=== PATIENT | female | born 1945 | race Caucasian/White ===

== ENCOUNTER 2019-08-31 14:58 | Outpatient (CLI) | payer MEDICARE, SELFPAY ==
--- NOTE | ~2019-08-31 | MM_ITS ---
EXAMINATION: MM screening ming BI w olya HISTORY: Screening mammogram TECHNIQUE: Craniocaudal and mediolateral oblique 3-D tomosynthesis images were obtained and synthetic 2-D images were generated. CAD analysis was submitted and interpreted. COMPARISON: 08/29/2018, 08/26/2017, 08/25/2016 BREAST PARENCHYMAL COMPOSITION: The breasts are heterogeneously dense, which may obscure small masses . FINDINGS: Scattered benign-appearing calcifications are present. There is no evidence of suspicious m ass, calcification, or architectural distortion to suggest malignancy in either breast. There has bee n no suspicious interval change. IMPRESSION: 1. No mammographic evidence of malignancy. 2. Recommend routine screening mammography in one year. BI-RADS Category 2: Benign finding(s). Reviewed, dictated and finalized at location A. ER PRESS OPERATOR
== END 2019-08-31 14:59 | disposition home or self-care (01) ==
PROVIDERS: PCP Family Medicine Adolescent Medicine; Visit Provider Family Medicine Adolescent Medicine
DX: Z12.31 Encounter for screening mammogram for malignant neoplasm of breast (principal)
CPT/HCPCS: 77063; 77067

== ENCOUNTER → 2020-11-07 10:19 | Outpatient (CLI) | payer MEDICARE, SELFPAY ==
--- NOTE | ~2020-11-07 | MM_ITS ---
EXAMINATION: MM screening ming BI w olya HISTORY: Screening mammogram TECHNIQUE: Craniocaudal and mediolateral oblique 3-D tomosynthesis images were obtained and synthetic 2-D images were generated. CAD analysis was submitted and interpreted. COMPARISON: 08/31/2019, , 08/26/2017 bilateral digital screening mammogram examinations BREAST PARENCHYMAL COMPOSITION: The breasts are heterogeneously dense, which may obscure small masses . FINDINGS: Scattered bilateral benign calcifications. There is no evidence of suspicious mass, calcifi cation, or architectural distortion to suggest malignancy in either breast. There has been no suspici ous interval change. IMPRESSION: 1. No mammographic evidence of malignancy. 2. Recommend routine screening mammography in one year. BI-RADS Category 2: Benign finding(s). Reviewed, dictated and finalized at location A.
--- NOTE | ~2020-11-07 | DEXA_ITS ---
Bone Density Report Name: Rosa James Age: 75 Sex: Female Ethnicity: White Date of : 1945 Indication: postmenopausal; screening for osteoporosis; Referring Provider: GLENN TORO Study: Bone densitometry was performed. Exam Date: November 07, 2020 Accession number: [id number] Bone Density: Region BMD T-score Z-score Classification AP Spine (L1-L4) 0.814 -2.1 0.2 Osteopenia Femoral Neck (Left) 0.719 -1.2 0.9 Osteopenia Total Hip (Left) 0.725 -1.8 0.0 Osteopenia Femoral Neck (Right) 0.636 -1.9 0.1 Osteopenia Total Hip (Right) 0.736 -1.7 0.0 Osteopenia Total Hip Mean 0.731 -1.8 0.0 Osteopenia World Health Organization criteria for BMD impression classify patients as: Normal (T-score at or above -1.0), Osteopenia (T-score between -1.0 and -2.5), or Osteoporosis (T-score at or below -2.5). 10-year Fracture Risk: FRAX not reported because: Treated for osteoporosis Clinical Information Provided by Patient: Is being treated for osteoporosis Has used the following medications: Boniva (i.e. ibandronate), Vitamin D, Calcium Patient maximum height was 65 Menopause Age: 51 Drinks caffeinated beverages Onset of menses at age 13 Number of children 3 Impression: The patient has low bone mass, based on the Total Spine T-score. Discussion: It is important to ask patients whether they are taking their medications and to encourage continued and appropriate compliance with their osteoporosis therapies to reduce fracture risk. It is also important to review their risk factors and encourage appropriate calcium and vitamin D intakes, exercise, fall prevention and other lifestyle measures. Follow-Up: Consider a repeat BMD and Vertebral Fracture Assessment (VFA) exam in 2 years or sooner if medically necessary, to reassess this patient's status. Reported by: QUYNH on 11/07/2020 10:45:00 AM. Reviewed, dictated and finalized at location AMohsen GUPTA
== END ==
PROVIDERS: PCP Family Medicine Adolescent Medicine; Visit Provider Family Medicine Adolescent Medicine
DX: Z78.0 Asymptomatic menopausal state (principal); Z12.31 Encounter for screening mammogram for malignant neoplasm of breast; M85.88 Other specified disorders of bone density and structure, other site; M85.852 Other specified disorders of bone density and structure, left thigh; M85.851 Other specified disorders of bone density and structure, right thigh
CPT/HCPCS: 77063; 77067; 77080

== ENCOUNTER → 2021-11-10 12:16 | Outpatient (CLI) | payer MEDICARE, SELFPAY ==
--- NOTE | ~2021-11-10 | MM_ITS ---
EXAMINATION: MM screening ming BI w olya HISTORY: Screening mammogram TECHNIQUE: Craniocaudal and mediolateral oblique 3-D tomosynthesis images were obtained and synthetic 2-D images were generated. CAD analysis was submitted and interpreted. COMPARISON: 11/07/2020, 08/31/2019, 08/29/2018 bilateral screening mammogram examinations BREAST PARENCHYMAL COMPOSITION: The breasts are heterogeneously dense, which may obscure small masses . FINDINGS: Scattered bilateral benign calcifications. There is no evidence of suspicious mass, calcifi cation, or architectural distortion to suggest malignancy in either breast. There has been no suspici ous interval change. IMPRESSION: 1. No mammographic evidence of malignancy. 2. Recommend routine screening mammography in one year. BI-RADS Category 2: Benign finding(s). Reviewed, dictated and finalized at location A.
== END ==
PROVIDERS: PCP Family Medicine Adolescent Medicine; Visit Provider Family Medicine Adolescent Medicine
DX: Z12.31 Encounter for screening mammogram for malignant neoplasm of breast (principal)
CPT/HCPCS: 77063; 77067

== ENCOUNTER → 2022-11-16 16:24 | Outpatient (CLI) | payer MEDICARE, SELFPAY ==
--- NOTE | ~2022-11-16 | MM_ITS ---
EXAMINATION: MM screening [facility] BI w olya HISTORY: Screening mammogram TECHNIQUE: Craniocaudal and mediolateral oblique 3-D tomosynthesis images were obtained and synthetic 2-D images were generated. CAD analysis was submitted and interpreted. COMPARISON: 11/10/2021, 11/07/2020, 08/31/2019 BREAST PARENCHYMAL COMPOSITION: The breasts are heterogeneously dense, which may obscure small masses . FINDINGS: No suspicious mass, calcification, or architectural distortion are identified in either reynold ast to suggest malignancy. There has been no suspicious interval change. IMPRESSION: 1. No mammographic evidence of malignancy. 2. Recommend routine screening mammography in one year. BI-RADS Category 1: Negative Reviewed, dictated and finalized at location A.
== END ==
PROVIDERS: PCP Family Medicine Adolescent Medicine; Visit Provider Family Medicine Adolescent Medicine
DX: Z12.31 Encounter for screening mammogram for malignant neoplasm of breast (principal)
CPT/HCPCS: 77063; 77067

== ENCOUNTER → 2022-11-18 10:16 | Outpatient (CLI) | payer MEDICARE, SELFPAY ==
--- NOTE | ~2022-11-18 | DEXA_ITS ---
Bone Density Report Name: CLARA SOTO Age: 77 Sex: Female Ethnicity: White Date of : 1945 Indication: osteopenia; monitoring treatment; postmenopausal Referring Provider: GLENN TORO Study: Bone densitometry was performed. Exam Date: November 18, 2022 Accession number: [id number] Bone Density: Region BMD T-score Z-score Classification AP Spine (L1-L4) 0.838 -1.9 0.6 Osteopenia Femoral Neck (Left) 0.701 -1.3 0.8 Osteopenia Total Hip (Left) 0.744 -1.6 0.2 Osteopenia Femoral Neck (Right) 0.647 -1.8 0.3 Osteopenia Total Hip (Right) 0.752 -1.6 0.3 Osteopenia Total Hip Mean 0.748 -1.6 0.3 Osteopenia World Health Organization criteria for BMD impression classify patients as: Normal (T-score at or above -1.0), Osteopenia (T-score between -1.0 and -2.5), or Osteoporosis (T-score at or below -2.5). 10-year Fracture Risk: FRAX not reported because: Treated for osteoporosis Previous Exams: Region Exam Age BMD T-score BMD Change BMD Change Date g/cm2 vs Baseline vs Previous AP Spine(L1-L4) 11/18/2022 77 0.838 -1.9 0.025* 0.025* 11/07/2020 75 0.814 -2.1 Total Hip(Left) 11/18/2022 77 0.744 -1.6 0.018 0.018 11/07/2020 75 0.725 -1.8 Total Hip(Right) 11/18/2022 77 0.752 -1.6 0.016 0.016 11/07/2020 75 0.736 -1.7 *Denotes significance at 95% confidence level, LSC for AP Spine = 0.022 g/cm2, LSC for Total Hip = 0.027 g/cm2 Clinical Information Provided by Patient: Is being treated for osteoporosis Has used the following medications: Boniva (i.e. ibandronate), Vitamin D, Calcium, LEVOTHYROXINE Patient maximum height was 65.5 Menopause Age: 51 Drinks caffeinated beverages Onset of menses at age 13 Number of children 3 Impression: The patient has low bone mass, based on the Total Spine T-score. No significant bone loss was observed. Discussion: PATIENT UNDER TREATMENT WITH NO SIGNIFICANT BMD LOSS SINCE LAST EXAM. In an untreated patient, BMD typically declines with age. A lack of decline or gain is usually a sign that treatment is efficacious and fracture risk is reduced. It is important to ask patients whether they are taking their medications and to encourage continued and appropriate compliance with their osteoporosis therapies to reduce fracture risk. It is also important to review their risk factors and encourage appropriate calcium and vitamin D intakes, exercise, fall
== END ==
PROVIDERS: PCP Family Medicine Adolescent Medicine; Visit Provider Family Medicine Adolescent Medicine
DX: Z78.0 Asymptomatic menopausal state (principal); M85.88 Other specified disorders of bone density and structure, other site; M85.852 Other specified disorders of bone density and structure, left thigh; M85.851 Other specified disorders of bone density and structure, right thigh
CPT/HCPCS: 77080

== ENCOUNTER 2023-12-22 12:27 | Outpatient (CLI) | payer MEDICARE, SELFPAY ==
--- NOTE | ~2023-12-22 | MM_ITS ---
EXAMINATION: MM screening ming BI w olya HISTORY: Screening TECHNIQUE: Craniocaudal and mediolateral oblique 3-D tomosynthesis images were obtained and synthetic 2-D images were generated. CAD analysis was submitted and interpreted. COMPARISON: Comparison to multiple prior studies sequentially, with oldest reviewed study dated 08/26. BREAST PARENCHYMAL COMPOSITION: There are scattered areas of fibroglandular density. FINDINGS: There is no evidence of suspicious mass, calcification, or architectural distortion to sugg est malignancy in either breast. There has been no suspicious interval change. IMPRESSION: 1. No mammographic evidence of malignancy. 2. Recommend routine screening mammography in one year. BI-RADS Category 1: Negative Reviewed, dictated and finalized at location B.
== END 2023-12-22 12:28 ==
LOC: MICIMG 12:27
PROVIDERS: PCP Family Medicine Adolescent Medicine; Visit Provider Family Medicine Adolescent Medicine
DX: Z12.31 Encounter for screening mammogram for malignant neoplasm of breast (principal)
CPT/HCPCS: 77063; 77067

== ENCOUNTER 2024-07-22 15:46 | Observation (INO) | payer MEDICARE, SELFPAY ==
--- NOTE | ~2024-07-22 | MR_ITS ---
EXAMINATION: MR brain/brain stem wo/w con DATE: 07/23/2024 12:12 INDICATION: Abnormal CT TECHNIQUE: Magnetic resonance imaging (MRI) of the brain and brainstem was performed both prior to an d following the administration of intravenous contrast, utilizing standard sequences. 15 mL of MultiHance was utilized COMPARISON: Reference is made to CT examination of the brain dated 07/22/2024 FINDINGS: No restricted diffusion is identified to suggest acute or subacute cerebral infarction. No abnormal signal intensity is identified on gradient echo imaging to suggest acute or subacute hemo rrhage. There are scattered areas of nonspecific increased T2-weighted signal intensity in the cerebral white matter, predominantly involving the deep and periventricular white matter. There are no intraparenchymal signal abnormalities seen on the other pulse sequences. The ventricles are symmetric and normal in size. There are no abnormal extra-axial fluid collections. Flow voids are seen in the cerebral arteries on the T2-weighted sequences consistent with their expec don patency. Visualized orbits and soft tissues are unremarkable. There are no areas of abnormal enhancement on the post contrast images. IMPRESSION: No acute or subacute cerebral infarction. No acute or subacute intracranial hemorrhage. The fred is grossly unremarkable on the MRI examination and is without abnormal signal intensity or c ontrast enhancement. Scattered areas of nonspecific increased T2 weighted signal intensity in the cerebral white matter, n ot uncommon in a patient of this age. Reviewed, dictated and finalized at location A. MODEL MAKER IMPRESSION: No acute or subacute cerebral infarction. No acute or subacute intracranial hemorrhage. The fred is grossly unremarkable on the MRI examination and is without abnormal signal intensity or contrast enhancement. Scattered areas of nonspecific increased T2 weighted signal intensity in the ce rebral white matter, not uncommon in a patient of this age.
--- NOTE | ~2024-07-22 | CT_ITS ---
CT brain wo con Ordering provider: Yeni Montgomery History: 78 years Female with . elevated blood pressure, headache . Comparison: None. Technique: CT of the head without contrast. Radiation reduction technique utilized. The dose-length product was 681 mGy-cm. FINDINGS: BRAIN PARENCHYMA AND CSF SPACES: Slightly prominent pontine area. MRI evaluation advised. Mild leukoa raiosis and diffuse cortical atrophy. Mild atheromatous disease. No midline shift, mass effect or hem orrhage. The brain parenchyma and CSF spaces are otherwise normal. VISUALIZED PARANASAL SINUSES: Well aerated. Marked attenuation of the posterior wall of the left sphenoid sinus is noted. MASTOIDS: Well aerated. BONES: The bones appear intact. SOFT TISSUES: Visualized nasopharynx is normal. Superficial soft tissues are normal. IMPRESSION: No acute intracranial findings. Slightly prominent pontine area. MRI evaluation advised. Reviewed, dictated and finalized at location A. 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
[2024-07-22 15:48] VITALS: BP 194/118; PULSE 98; RESP 18; TEMP 36.8; O2SAT 98
--- NOTE | 2024-07-22 15:56 | ECG_ITS ---
Test Date: 2024-07-22 16:12:07 Measurements Intervals [place] Rate: 91 P: 71 CO: 142 QRS: 16 QRSD: 108 T: 47 QT: 375 QTc: 462 Interpretive Statements SINUS RHYTHM WITH OCCASIONAL VENTRICULAR PREMATURE COMPLEXES POSSIBLE LEFT ATRIAL ENLARGEMENT [-0.1mV P WAVE IN V1/V2] MODERATE ST DEPRESSION [0.05+ mV ST DEPRESSION], CONSIDER INFEROLATERAL ISCHEMIA ABNORMAL ECG Electronically Signed On 07-22-2024 17:43:44 ELECTRIC METER TESTER by Yusuf Rose M.D.
--- NOTE | 2024-07-22 18:59 | ED_ITS ---
HPI - Arrhythmia/Palpitations General Chief Complaint: Arrhythmia/Palpitations <Yeni Montgomery PA-C - Last Filed: 07/23/24 01:35> Stated Complaint: palpatations <Yeni Montgomery PA-C - Last Filed: 07/23/24 01:35> Time Seen by Provider: 07/22/24 18:59 <Yeni Montgomery PA-C - Last Filed: 07/23/24 01:35> Focused HPI: This is a 78 year old female that presents to the ER for elevated blood pressure. Ongoing over the last week. Reports associated headaches. Reports when she was taking her blood pressure this afternoon she saw a warning that she had an irregular heart beat on the machine. She has been taking her blood pressure medications daily. She takes HCTZ and Irbesartan. GENERAL: Elderly, well-nourished, and in no acute distress. HEAD: Normocephalic, atraumatic. CHEST: Clear to auscultation. ?No respiratory distress. HEART: Regular rate and rhythm.? NEURO: ?Alert and oriented x3. Patient screened in triage and initial orders placed.? ?Additional care and disposition to be based upon?diagnostic testing and treatment. <Yeni Montgomery PA-C - Last Filed: 07/23/24 01:35> Related Data Home Medications: Home Medications ?Medication ?Instructions ?Recorded ?Confirmed ?Last Taken ?Type calcium 600 mg (as cap PO DAILY 07/22/21 11/24/23 Unknown History carbonate)-vitamin D3 12.5 mcg (500 unit) capsule (Calcium with Vit D3) aspirin 81 mg tablet,delayed 81 mg PO DAILY 10/01/21 11/24/23 Unknown History release (Adult Low Dose Aspirin) mecobalamin (vitamin B12) 1,000 2,000 mcg PO DAILY 11/24/23 11/24/23 Unknown History mcg lozenges <Yeni Montgomery PA-C - Last Filed: 07/23/24 01:35> Allergies/Adverse Reactions: Allergies Allergy/AdvReac Type Severity Reaction Status Date / Time erythromycin base Allergy Severe EXPOSED TO Verified 11/24/23 13:53 SUN--RASH lisinopril AdvReac Intermediate hyperkalemi Verified 11/24/23 13:53 a doxycycline AdvReac vision Verified 11/24/23 14:26 floaters <Yeni Montgomery PA-C - Last Filed: 07/23/24 01:35> Review of Systems 2 Review of Systems: CONSTITUTIONAL: Denies fever EYES: Denies visual changes CARDIOVASCULAR: Denies chest pain NEUROLOGIC: Reports headache. Denies numbness, or weakness. <Yeni Montgomery PA-C - Last Filed: 07/23/24 01:35> All systems reviewed & are unremarkable except as noted in HPI and below < Yeni Montgomery PA-C - Last Filed: 07/23/24 01:35> PMFSH Past Medical History Medical History: Medical History Normal colonoscopy 2015 Repeat 2025 <REMI Morales Last Filed: 07/23/24 01:35> Surgical History Surgical History: Surgical History History of dilatation and curettage x3 History of surgical removal of ganglion cyst left History of tonsillectomy and adenoidectomy <REMI Morales Last Filed: 07/23/24 01:35> Family History Family History: Family History Sibling Coronary artery disease involving coronary bypass graft <REMI Morales Last Filed: 07/23/24 01:35> Social History Social History: Social History Smoking status: Never smoker Second hand tobacco smoke exposure: No Alcohol intake: current Drinks per week: 1 Substance use: never Substance use type: does not use Living arrangements: alone Occupation/Education: retired Gender identity (if verbalized by the patient): Female Sexual Orientation (if Verbalized by the Patient): Straight or Heterosexual Spiritual care concerns: No Agree to blood products: Yes <REMI Morales Last Filed: 07/23/24 01:35> Exam 2 Narrative: GENERAL: Well-appearing, well-nourished, and in no acute distress. HEAD: Normocephalic, atraumatic. EYES: PERRLA and EOMI. ENT: Nares clear, no rhinorrhea or epistaxis. Mucous membranes moist. Oropharynx without tonsillar hypertrophy exudate or other lesions. Bilateral TMs pearly irving non-bulging NECK: Supple. No adenopathy or masses. CHEST: Clear to auscultation. No respiratory distress. No wheezes rales or rhonchi HEART: Regular rate and rhythm. No murmur heard. Normal peripheral pulses. EXTREMITIES: Normal range of motion. No edema. SKIN: Warm, dry, no rash. NEURO: No focal deficits. Alert and oriented x3. Cranial nerves 2-12 grossly intact PSYCH: Normal mood and affect <Yeni Montgomery PA-C - Last Filed: 07/23/24 01:35> Course Course Emergency Course: patient updated on workup and recommendation for admission <Yeni Montgomery PA-C - Last Filed: 07/23/24 01:35> DINING ROOM TABLES SET UP ATTENDANT/PA Physician Supervision For this patient encounter, I reviewed the DINING ROOM TABLES SET UP ATTENDANT or PA documentation, treatment plan, and medical decision making; and I had [id number] time with this patient. <Kristopher Talamantes MD - Last Filed: 07/23/24 07:04> Consultations Consultation #1: spoke with hospitalist about patient and workup who accepts admission < Yeni Montgomery PA-C - Last Filed: 07/23/24 01:35> Date: 07/23/24 <Yeni Montgomery PA-C - Last Filed: 07/23/24 01:35> Vital Signs Vital signs: Vital Signs Temperature 98.2 F 07/22/24 15:48 Pulse Rate 98 07/22/24 15:48 Respiratory Rate 18 07/22/24 15:48 Blood Pressure 194/118 H 07/22/24 15:48 Pulse Oximetry 98 07/22/24 15:48 Oxygen Delivery Room Air 07/22/24 15:48 Temperature 97.8 F 07/23/24 03:29 Pulse Rate 81 07/23/24 03:29 Respiratory Rate 16 07/23/24 03:29 Blood Pressure 137/75 07/23/24 03:29 Pulse Oximetry 97 07/23/24 03:29 Oxygen Delivery Room Air 07/22/24 15:48 <Yeni Montgomery PA-C - Last Filed: 07/23/24 01:35> Vital Signs Temperature 98.2 F 07/22/24 15:48 Pulse Rate 98 07/22/24 15:48 Respiratory Rate 18 07/22/24 15:48 Blood Pressure 194/118 H 07/22/24 15:48 Pulse Oximetry 98 07/22/24 15:48 Oxygen Delivery Room Air 07/22/24 15:48 Temperature 97.8 F 07/23/24 03:29 Pulse Rate 81 07/23/24 03:29 Respiratory Rate 16 07/23/24 03:29 Blood Pressure 137/75 07/23/24 03:29 Pulse Oximetry 97 07/23/24 03:29 Oxygen Delivery Room Air 07/22/24 15:48 <Kristopher Talamantes MD - Last Filed: 07/23/24 07:04> MDM - Arrhythmia/Palpitations MDM Narrative Medical decision making narrative: Patient presents to the emergency department for elevated blood pressure readings. Known history of hypertension. Reports she has been taking her antihypertensives as prescribed. Reports associated headaches. Blood pressure elevated 194/118 upon arrival. This down trended without intervention. Blood pressure now 140s to 150s systolic. CBC metabolic panel without concerning findings. TSH is low, but free T4 is normal. CT brain without acute intracranial findings. Shows slightly prominent pontine area. Recommend MRI evaluation. patient updated on workup and recommendation for admission. spoke with hospitalist about patient and workup who accepts admission <Yeni Montgomery PA-C - Last Filed: 07/23/24 01:35> Differential Diagnosis Differential diagnosis: Likely palpitations, anxiety, sinus tachycardia, artial fibrillation, ventricular premature beats and other (Hypertension, hypertensive urgency, intracranial hemorrhage, intracranial mass) <Yeni Montgomery PA-C - Last Filed: 07/23/24 01:35> Lab Data Attestation: I reviewed the patient's lab results. <Yeni Montgomery PA-C - Last Filed: 07/23/24 01:35> Result diagrams: 07/22/24 21:54 07/22/24 21:54 <Yeni Montgomery PA-C - Last Filed: 07/23/24 01:35> Labs: Lab Results 07/22/24 Range/Units 21:54 WBC 6.3 (4.5-10.0) K/mm3 RBC 4.29 (4.2-5.4) M/mm3 Hgb 14.5 (12.0-15.0) g/dL Hct 41.1 (37.0-47.0) % MCV 95.8 (80-100) fl MCH 33.8 (26-34) pg MCHC 35.3 (32-36) g/dl RDW 11.6 (11.5-14.5) % Plt Count 314 (150-375) k/mm3 MPV 9.1 (7.4-10.4) fl Immature Gran % (Auto) 0.2 (0-0.5) % Neut % (Auto) 41.4 L (45.5-73.1) % Lymph % (Auto) 34.8 (18.3-44.2) % Shannon % (Auto) 18.0 H (2.6-8.5) % Eos % (Auto) 5.1 H (0-4.4) % Baso % (Auto) 0.5 (0.2-1.2) % Lymph # (Auto) 2.18 (0.9-3.2) K/mm3 Shannon # (Auto) 1.1 H (0.1-0.6) K/mm3 Eos # (Auto) 0.3 (0-0.3) K/mm3 Baso # (Auto) 0.0 (0.0-0.1) K/mm3 Abs Immat Gran (auto) 0.01 (0.00-0.031) K/mm3 Absolute Neuts (auto) 2.6 (1.3-6.7) K/mm3 Absolute Nucleated RBC 0.000 (0.0-0.012) K/mm3 Nucleated RBC % 0.0 (0.0-0.2) % PT 13.5 (11.1-14.7) Seconds INR 1.0 APTT 26.5 (22.3-36.8) Seconds Sodium 138 (137-145) mmol/L Potassium 3.6 (3.4-5.0) mmol/L Chloride 99 (98-107) mmol/L Carbon Dioxide 28 (22-30) mmol/L Anion Gap 11 (4-12) mmol/L BUN 22 H (7-17) mg/dL Creatinine 0.52 L (0.7-1.0) mg/dL Estim Creat Clear Calc 68 ml/min Estimated GFR > 60 (59 - ) Glucose 103 (65-110) mg/dL Calcium 10.2 (8.4-10.2) mg/dL Total Bilirubin 1.2 (0.2-1.3) mg/dL AST 25 (14-36) U/L ALT 28 (6-35) U/L Alkaline Phosphatase 79 (38-126) U/L Total Protein 8.0 (6.3-8.2) g/dL Albumin 5.0 (3.5-5.1) g/dL TSH (Reflex) 0.274 L (0.465-4.68) uIU/mL Free T4 1.90 (0.78-2.19) ng/dL Total T3 1.25 (0.97-1.69) NG/ML <Yeni Montgomery PA-C - Last Filed: 07/23/24 01:35> Lab Results 07/22/24 Range/Units 21:54 WBC 6.3 (4.5-10.0) K/mm3 RBC 4.29 (4.2-5.4) M/mm3 Hgb 14.5 (12.0-15.0) g/dL Hct 41.1 (37.0-47.0) % MCV 95.8 (80-100) fl MCH 33.8 (26-34) pg MCHC 35.3 (32-36) g/dl RDW 11.6 (11.5-14.5) % Plt Count 314 (150-375) k/mm3 MPV 9.1 (7.4-10.4) fl Immature Gran % (Auto) 0.2 (0-0.5) % Neut % (Auto) 41.4 L (45.5-73.1) % Lymph % (Auto) 34.8 (18.3-44.2) % Shannon % (Auto) 18.0 H (2.6-8.5) % Eos % (Auto) 5.1 H (0-4.4) % Baso % (Auto) 0.5 (0.2-1.2) % Lymph # (Auto) 2.18 (0.9-3.2) K/mm3 Shannon # (Auto) 1.1 H (0.1-0.6) K/mm3 Eos # (Auto) 0.3 (0-0.3) K/mm3 Baso # (Auto) 0.0 (0.0-0.1) K/mm3 Abs Immat Gran (auto) 0.01 (0.00-0.031) K/mm3 Absolute Neuts (auto) 2.6 (1.3-6.7) K/mm3 Absolute Nucleated RBC 0.000 (0.0-0.012) K/mm3 Nucleated RBC % 0.0 (0.0-0.2) % PT 13.5 (11.1-14.7) Seconds INR 1.0 APTT 26.5 (22.3-36.8) Seconds Sodium 138 (137-145) mmol/L Potassium 3.6 (3.4-5.0) mmol/L Chloride 99 (98-107) mmol/L Carbon Dioxide 28 (22-30) mmol/L Anion Gap 11 (4-12) mmol/L BUN 22 H (7-17) mg/dL Creatinine 0.52 L (0.7-1.0) mg/dL Estim Creat Clear Calc 68 ml/min Estimated GFR > 60 (59 - ) Glucose 103 (65-110) mg/dL Calcium 10.2 (8.4-10.2) mg/dL Total Bilirubin 1.2 (0.2-1.3) mg/dL AST 25 (14-36) U/L ALT 28 (6-35) U/L Alkaline Phosphatase 79 (38-126) U/L Total Protein 8.0 (6.3-8.2) g/dL Albumin 5.0 (3.5-5.1) g/dL TSH (Reflex) 0.274 L (0.465-4.68) uIU/mL Free T4 1.90 (0.78-2.19) ng/dL Total T3 1.25 (0.97-1.69) NG/ML <Kristopher Talamantes MD - Last Filed: 07/23/24 07:04> Imaging Data Radiologist's impression: ITS Impressions Head CT 07/22/24 20:09 IMPRESSION: No acute intracranial findings. Slightly prominent pontine area. MRI evaluation advised. <Yeni L. Montgomery, PA-C - Last Filed: 07/23/24 01:35> ECG Data EKG #1: ECG completion date: 07/22/24 <REMI Morales Last Filed: 07/23/24 01:35> EKG Interpretation: normal rate, sinus rhythm, PVCs, no ST changes and normal QT <REMI Morales Last Filed: 07/23/24 01:35> Critical Care Time Critical Care Time Critical Care Time: No <REMI Morales Last Filed: 07/23/24 01:35> Discharge Plan Discharge Clinical Impression: Abnormal brain CT Hypertension Qualifiers: Hypertension type: unspecified Qualified Code(s): I10 - Essential (primary) hypertension <REMI Morales Last Filed: 07/23/24 01:35> Patient Disposition: Still a Patient <REMI Morales Last Filed: 07/23/24 01:35> Condition: Improved <REMI Morales Last Filed: 07/23/24 01:35>
[2024-07-22 20:50] VITALS: BP 154/99; PULSE 89; RESP 19; O2SAT 99
[2024-07-22 22:01] LABS: Basophils Percent Auto 0.5 % (0.2-1.2); Eosinophils Absolute Auto 0.3 K/mm3 (0-0.3); Eosinophils Percent Auto 5.1 % (0-4.4); Hematocrit 41.1 % (37.0-47.0); Hemoglobin 14.5 g/dL (12.0-15.0); Immature Granulocyte Absolute 0.01 K/mm3 (0.00-0.031); Immature Granulocyte Percent A 0.2 % (0-0.5); Lymphocytes Absolute Auto 2.18 K/mm3 (0.9-3.2); Lymphocytes Percent Auto 34.8 % (18.3-44.2); Mean Corpuscular HGB Conc 35.3 g/dl (32-36); Mean Corpuscular Hemoglobin 33.8 pg (26-34); Mean Corpuscular Volume 95.8 fl (80-100); Mean Platelet Volume 9.1 fl (7.4-10.4); Monocytes Absolute Auto 1.1 K/mm3 (0.1-0.6); Neutrophils Absolute Auto 2.6 K/mm3 (1.3-6.7); Neutrophils Percent Auto 41.4 % (45.5-73.1); Platelet Count Result 314 k/mm3 (150-375); Red Blood Count 4.29 M/mm3 (4.2-5.4); Red Cell Distribution Width 11.6 % (11.5-14.5); White Blood Count 6.3 K/mm3 (4.5-10.0)
[2024-07-22 22:11] LABS: Alanine Aminotransferase 28 U/L (6-35); Alkaline Phosphatase 79 U/L (38-126); Anion Gap 11 mmol/L (4-12); Aspartate Amino Transferase 25 U/L (14-36); Bilirubin,Total 1.2 mg/dL (0.2-1.3); Blood Urea Nitrogen 22 mg/dL (7-17); Calcium 10.2 mg/dL (8.4-10.2); Carbon Dioxide 28 mmol/L (22-30); Chloride 99 mmol/L (98-107); Estimated CRCL calculation 68 ml/min; Estimated Glomerular Filt Rate > 60; Glucose 103 mg/dL (65-110); Potassium 3.6 mmol/L (3.4-5.0); Prothrombin Time 13.5 Seconds (11.1-14.7); Sodium 138 mmol/L (137-145)
[2024-07-22 22:12] LABS: Partial Thromboplastin Time 26.5 Seconds (22.3-36.8)
[2024-07-22 22:43] LABS: Thyroid Stimulating Hormone Reflex 0.274 uIU/mL (0.465-4.68)
[2024-07-23] VITALS (25 sets, daily range): BP systolic 108–162; BP diastolic 60–89; PULSE 67–100; RESP 13–22; TEMP 36.4–37.4; O2SAT 95–100; BMI 25.7
[2024-07-23 01:14] LABS: Total Triiodothyronine (T3) 1.25 NG/ML (0.97-1.69)
--- NOTE | 2024-07-23 17:14 | PM.IMHP ---
H&P: HPI History of Present Illness Date/Time: 07/23/24 17:14 Chief Complaint: Elevated Blood Pressure Narrative: Patient presented to the ER with reports of elevated BP at home, associated with headache. She reports headache started 2 days ago and resolved but returned again today. She reports checking her BP multiple times before her presentation and it was trending higher every time she checked. Her BP machine also reported to her irregular heart beat, prompting patient to come to the ER for evaluation. She denies any associating dizziness or SOB, and denies chest discomfort or one sided weakness, facial droop or any trouble swallowing. States she feels like her normal except for the headache. Review of Systems Review of Systems: All systems reviewed & are unremarkable except as noted in HPI and below PMFSH Past Medical History Medical History Normal colonoscopy 2016 Repeat 2025 Surgical History Surgical History History of surgical removal of ganglion cyst left History of dilatation and curettage x3 History of tonsillectomy and adenoidectomy Family History Family History Sibling Coronary artery disease involving coronary bypass graft Social History Social History Smoking status: Never smoker Second hand tobacco smoke exposure: No Alcohol intake: never Drinks per week: 1 Substance use: never Substance use type: does not use Do You Feel Safe in your Home?: Yes Lack of Transportation: No Lack of Food: Never True Current Housing: I Have Housing Concerned About Future Housing: No Difficulty Paying Gas/Electric Bills: No Difficulty Paying for Meds: No Currently Unemployed: No Education: Master's Degree or Higher Difficulty w/ Childcare or Family Care: No Living arrangements: alone Occupation/Education: retired Gender identity (if verbalized by the patient): Female Sexual Orientation (if Verbalized by the Patient): Straight or Heterosexual Spiritual care concerns: No Agree to blood products: Yes Meds Home Medications and Allergies Home Medications ?Medication ?Instructions ?Recorded ?Confirmed ?Type calcium 600 mg (as 1 cap PO BID 07/22/21 07/23/24 History carbonate)-vitamin D3 12.5 mcg (500 unit) capsule (Calcium with Vit D3) aspirin 81 mg tablet,delayed 81 mg PO DAILY 10/01/21 07/23/24 History release (Adult Low Dose Aspirin) irbesartan 300 mg tablet 300 mg PO DAILY #90 tabs 07/22/23 07/23/24 Rx levothyroxine 125 mcg tablet 125 mcg PO DAILY #90 tabs 07/22/23 07/23/24 Rx mecobalamin (vitamin B12) 1,000 2,000 mcg PO DAILY 11/24/23 07/23/24 History mcg lozenges montelukast 10 mg tablet 10 mg PO QHS #90 tabs 11/24/23 07/23/24 Rx hydrochlorothiazide 25 mg tablet 25 mg PO DAILY #90 tabs 07/22/24 07/23/24 Rx ibandronate 150 mg tablet 150 mg PO MONTHLY #3 tabs 07/22/24 07/23/24 Rx Allergies Allergy/AdvReac Type Severity Reaction Status Date / Time erythromycin base Allergy Severe EXPOSED TO Verified 11/24/23 13:53 SUN--RASH lisinopril AdvReac Intermediate hyperkalemi Verified 11/24/23 13:53 a doxycycline AdvReac vision Verified 11/24/23 14:26 floaters Vital Signs Vital Signs - 24 hr 07/22/24 20:50 07/23/24 00:31 07/23/24 02:01 Temperature Pulse Rate 89 94 95 Respiratory Rate 19 19 22 H Blood Pressure 154/99 H 162/83 H 159/84 H Pulse Oximetry 99 98 100 07/23/24 03:16 07/23/24 03:29 07/23/24 03:29 Temperature 97.8 F Pulse Rate 81 82 81 Respiratory Rate 22 H 16 Blood Pressure 137/75 137/75 Pulse Oximetry 97 97 07/23/24 03:31 07/23/24 03:46 07/23/24 04:01 Temperature Pulse Rate 81 100 78 Respiratory Rate 20 20 19 Blood Pressure 127/79 133/80 144/88 H Pulse Oximetry 98 98 98 07/23/24 04:16 07/23/24 04:31 07/23/24 04:46 Temperature Pulse Rate 77 79 77 Respiratory Rate 13 22 H 21 H Blood Pressure 122/74 129/60 111/70 Pulse Oximetry 99 98 99 07/23/24 05:01 07/23/24 05:16 07/23/24 05:31 Temperature Pulse Rate 72 69 81 Respiratory Rate 17 19 20 Blood Pressure 111/69 108/66 136/67 Pulse Oximetry 98 98 100 07/23/24 05:35 07/23/24 06:46 07/23/24 07:02 Temperature 98.7 F Pulse Rate 75 67 78 Respiratory Rate 20 19 20 Blood Pressure 128/69 111/62 128/69 Pulse Oximetry 96 97 97 07/23/24 07:16 07/23/24 07:38 07/23/24 11:19 Temperature 97.6 F Pulse Rate 77 87 88 Respiratory Rate 16 17 14 Blood Pressure 125/72 139/75 125/76 Pulse Oximetry 100 95 96 07/23/24 14:23 07/23/24 15:03 07/23/24 15:52 Temperature 97.6 F Pulse Rate 98 90 79 Respiratory Rate 16 16 14 Blood Pressure 139/81 130/88 155/89 H Pulse Oximetry 97 98 100 Exam Narrative: HEENT: Atraumatic, PERRL, EOM, anicteric, moist mucosa. NECK: Supple. Lungs: Clear bilaterally. Heart: RRR, no murmurs. Abdomen: Soft, non-tender, non-distended, +ve BS X4 Quadrants. Extremities: Acyanotic, no edema. Skin: Warm and dry with no lesions. Neuro: Well oriented. CN II-XII grossly intact. Musculoskeletal: Strength 5/5 on all extremities, good ROM christiano. Psych: Pleasant and co-operative. H&P: Results Labs Labs: Short CBC 07/22/24 Range/Units 21:54 WBC 6.3 (4.5-10.0) K/mm3 Hgb 14.5 (12.0-15.0) g/dL Hct 41.1 (37.0-47.0) % Plt Count 314 (150-375) k/mm3 BMP 07/22/24 21:54 Sodium 138 Potassium 3.6 Chloride 99 Carbon Dioxide 28 BUN 22 H Creatinine 0.52 L Glucose 103 Calcium 10.2 Liver Function 07/22/24 Range/Units 21:54 Total Bilirubin 1.2 (0.2-1.3) mg/dL AST 25 (14-36) U/L ALT 28 (6-35) U/L Alkaline Phosphatase 79 (38-126) U/L Albumin 5.0 (3.5-5.1) g/dL Assessment and Plan Assessment and plan (1) Abnormal brain CT: Code(s): R90.89 - Other abnormal findings on diagnostic imaging of central nervous system Status: Acute Assessment and Plan: CT Brain: No acute intracranial findings. Slightly prominent pontine area. MRI evaluation advised. - MRI brain ordered. - Pt with headache since yesterday. - Follow MRI brain results. - No focal neuro deficits noted. (2) Cephalgia: Code(s): R51.9 - Headache, unspecified Status: Acute Assessment and Plan: - Possibly related to above. - We'll give Ibuprofen for now per pt preference. - Follow MRI brain results. - Supportive care for now. (3) Essential (primary) hypertension: Code(s): I10 - Essential (primary) hypertension Status: Acute Assessment and Plan: - BP currently trending normal highs; SBP 130's-150's. - Hold BP meds for now pending MRI brain for possible acute CVA. - Monitor closely. (4) Pure hypercholesterolemia, unspecified: Code(s): E78.00 - Pure hypercholesterolemia, unspecified Status: Acute Assessment and Plan: - Check lipid panel and A1C. - We'll consider statin pending MRI brain and Lipid panel results. (5) Hypothyroidism, unspecified: Code(s): E03.9 - Hypothyroidism, unspecified Status: Acute Assessment and Plan: - Check TSH/FT4. - Continue home dose levothyroxine for now. (6) Vitamin B12 deficiency: Code(s): E53.8 - Deficiency of other specified B group vitamins Status: Acute Assessment and Plan: - Continue PO supplementation. (7) Age-related osteoporosis without current pathological fracture: Code(s): M81.0 - Age-related osteoporosis without current pathological fracture Status: Acute Assessment and Plan: - Continue calcium and Vit-D supplementation. Plan Further w/u pending MRI Brain results. Quality VTE Prophylaxis VTE prophylaxis: mechanical ordered Hospitalist MIPS Advance Care Plan I have confirmed that the patient's Advanced Care Plan is present, code status is documented, or surrogate decision maker is listed in patient medical record.: Yes Medication Reconciliation I have utilized all available resources to obtain, update and review the patients current medications (includes all prescriptions, OTC, herbals, cannabis, and nutritional supplements).: Yes
--- NOTE | 2024-07-23 17:16 | ADMGEN ---
This patient, Rosa James, was admitted to 3 [facility] Surg Room 306-01. Patient/family oriented to hospital policies and general routines including ID bracelet, bed and alarms, visiting hours, pain management, procedures, bathroom and other care routines, personal items, smoking policy, room service/diet, and visiting hours. Information on how to activate the Rapid Response Team has been discussed. Patient/Family are encouraged to report perceived risks to care and to ask questions if they do not understand what they are told or what they should do. Report from Kassandra in ER.
[2024-07-23] MEDS: IBUPROFEN 400 MG TABLET PO (17:44)
[2024-07-23] MEDS: ASPIRIN 325 MG TABLET PO (17:45)
[2024-07-23] MEDS: CALCIUM/VITAMIN D 500 MG/5 MCG (200 I.U.) TABLET PO (17:45)
[2024-07-23 19:36] LABS: Hemoglobin A1C 5.7 % (<5.7)
[2024-07-23 19:40] LABS: Cholesterol 218 mg/dL (0-200); HDL Direct 83 mg/dL; Triglycerides 53 mg/dL (<150)
[2024-07-23 19:51] LABS: LDL Cholesterol Direct 98 mg/dL
[2024-07-24] VITALS (7 sets, daily range): BP systolic 119–141; BP diastolic 65–72; PULSE 61–86; RESP 18; TEMP 36.3–37.6; O2SAT 96–98
[2024-07-24] MEDS: LEVOTHYROXINE SODIUM 125 MCG TABLET PO (05:59)
[2024-07-24] MEDS: CYANOCOBALAMIN 1,000 MCG TABLET 2000 MCG PO (08:28)
[2024-07-24] MEDS: ASPIRIN 81 MG ENTERIC TABLET PO (08:29)
[2024-07-24] MEDS: CALCIUM/VITAMIN D 500 MG/5 MCG (200 I.U.) TABLET PO (09:48)
--- NOTE | 2024-07-24 12:38 | P.DS_ITS ---
DS: Admitting Diagnosis Discharge Date 07/24/24 Admitting Diagnosis Elevated BP DS: Discharge Diagnosis Discharge Diagnosis (1) Abnormal brain CT: Code(s): R90.89 - Other abnormal findings on diagnostic imaging of central nervous system Status: Acute Assessment and Plan: Acute (2) Cephalgia: Code(s): R51.9 - Headache, unspecified Status: Acute Assessment and Plan: - Acute. (3) Essential (primary) hypertension: Code(s): I10 - Essential (primary) hypertension Status: Acute Assessment and Plan: - Chronic. (4) Pure hypercholesterolemia, unspecified: Code(s): E78.00 - Pure hypercholesterolemia, unspecified Status: Acute Assessment and Plan: - Chronic. (5) Hypothyroidism, unspecified: Code(s): E03.9 - Hypothyroidism, unspecified Status: Acute Assessment and Plan: -Chronic. (6) Vitamin B12 deficiency: Code(s): E53.8 - Deficiency of other specified B group vitamins Status: Acute Assessment and Plan: - Chronic. (7) Age-related osteoporosis without current pathological fracture: Code(s): M81.0 - Age-related osteoporosis without current pathological fracture Status: Acute Assessment and Plan: - Chronic. Plan Discharge Home. DS: Summary Hospital Course Reason for hospitalization: Elevated BP. Hospital Course: Patient presented to the ER with reports of elevated BP at home within the last 2 days, associated with headache. Patient states that her BP machine read high BP and irregular rhythm. With the symptoms not improving and associated with non-improving headache, she decided to come to the ER for evaluation. Patient's SBP was >190 on admission, with CT head showing; No acute intracranial findings. Slightly prominent pontine area. MRI evaluation advised. Patient had MRI brain done that was negative for acute, and showed; The fred is grossly unremarkable on the MRI examination and is without abnormal signal intensity or contrast enhancement. Scattered areas of nonspecific increased T2 weighted signal intensity in the cerebral white matter, not uncommon in a patient of this age. Patient reports her headache has resolved this AM and she does not have any acute symptoms, and no neuro deficits. Her BP has been fairly well controlled off medications and she will be discharged on home medications and follow-up with her PCP for adjustments if needed. Her A1C was 5.7 and she was advised on diabetic diet, LDL noted at 98 as well. Patient has been advised to follow-up with PCP for continued mgt of her chronic conditions. Patient with no neuro deficits and is medically stable for discharge with no acute distress noted or reported prior to discharge. Status at Discharge Functional status at discharge: independent ambulation Overall status at discharge: patient is back to baseline Time Spent with Patient Time spent: Greater than 30 minutes Exam Narrative: General: Well appearing, no acute distress. HEENT: Atraumatic, PERRL, EOM, anicteric, moist mucosa. NECK: Supple. Lungs: Clear bilaterally. Heart: RRR, no murmurs. Abdomen: Soft, non-tender, non-distended, +ve BS X4 Quadrants. Extremities: Acyanotic, no edema. Skin: Warm and dry with no lesions. Neuro: Well oriented. CN II-XII grossly intact. Musculoskeletal: Strength 5/5 on all extremities, good ROM christiano. Psych: Pleasant and co-operative. DS: Data Data Completed and Pending Labs on day of discharge: Labs from last 24 hours 07/23/24 19:23 Hemoglobin A1c 5.7 Triglycerides 53 Cholesterol 218 H LDL Cholesterol Direct 98 HDL Direct 83 Discharge Plan Discharge Attending physician on discharge: Hieu Yates Discharging Clinician: Marlon Dias Anticipated Discharge Date/Time: 07/24/24 12:54 Patient Disposition: Home, Self-Care Activity: as tolerated Diet: heart healthy Patient Instructions: Antibiotic Form Patient Language: South Sudanese Stand Alone Forms: General Discharge Information Follow-up/Referrals: Td Mark MD [Primary Care Provider] - 1 Week Discharge Medications: Continued aspirin [Adult Low Dose Aspirin] 81 mg tablet,delayed release (DR/EC) 81 mg PO DAILY irbesartan 300 mg tablet 300 mg PO DAILY Qty: 90 3RF levothyroxine 125 mcg tablet 125 mcg PO DAILY Qty: 90 3RF montelukast 10 mg tablet 10 mg PO QHS Qty: 90 0RF mecobalamin (vitamin B12) 1,000 mcg lozenge 2,000 mcg PO DAILY Rx Instructions: allow to dissolve in mouth OR may chew lightly before swallowing calcium carbonate-vitamin D3 [Calcium 600 with Vitamin D3] 600 mg-12.5 mcg (500 unit) capsule 1 cap PO BID ibandronate 150 mg tablet 150 mg PO MONTHLY Qty: 3 3RF Patient Comments: takes the first of every month hydrochlorothiazide 25 mg tablet 25 mg PO DAILY Qty: 90 0RF Date of admission: 07/23/24 01:24 Primary Care Provider: Td Mark Admitting Provider: Brian Benavides V. Attending physician on admission: Brian Benavides V. Condition: Improved Quality If No VTE Prophylaxis Answer both mechanical and pharmacologic: Reason no mechanical VTE proph: low risk/not indicated Reason no pharmacologic proph: low risk/not indicated Hospitalist MIPS Heart Failure (Exclusion) Patient has history of Heart Transplant or Left Ventricular Assistive Device?: No IF YES, STOP HERE Heart Failure (Qualifier) Patient has current or prior documentation of LVEF less than or equal to 40%, or mod/servere depressed LVSF?: No IF NO, STOP HERE
== END 2024-07-24 13:20 | disposition home or self-care (01) ==
LOC: ANHED 07-23 01:30 → ANH3MEDSUR 07-24 06:19
PROVIDERS: Nurse Practitioner Adult Health; Admitting Provider Internal Medicine; Emergency Provider Physician Assistant; PCP Family Medicine Adolescent Medicine; Visit Provider Hospitalist
DX: R51.9 Headache, unspecified (principal); I10 Essential (primary) hypertension; R90.89 Other abnormal findings on diagnostic imaging of central nervous system; E78.00 Pure hypercholesterolemia, unspecified; E03.9 Hypothyroidism, unspecified; E53.8 Deficiency of other specified B group vitamins; M81.0 Age-related osteoporosis without current pathological fracture; Z79.82 Long term (current) use of aspirin; Z79.899 Other long term (current) drug therapy
CPT/HCPCS: 36415; 70450; 70553; 80053; 80061; 83036; 84439; 84443; 84480; 85025; 85610; 85730; 93005; 99285; A9270; A9577; G0378

== ENCOUNTER 2024-11-22 15:02 | Outpatient (CLI) | payer MEDICARE, SELFPAY ==
--- NOTE | ~2024-11-22 | XR_ITS ---
XR hip BI 2V w AP pelvis 11/22/2024 15:29 Indication: Right hip pain Procedure: AP pelvis and 2 views each hip Comparison: No prior studies for comparison. Findings: There is moderate bilateral osteoarthritis of the hips. Pelvic rings are intact. There is l ower lumbar spondylosis. Sacral foramen are symmetric. No acute fracture, subluxation or dislocation. No focal soft tissue abnormality. No foreign bodies. Impression: 1: Moderate symmetric osteoarthritis of the hips. Reviewed, dictated and finalized at location A. Impression: 1: Moderate symmetric osteoarthritis of the hips.
== END 2024-11-22 15:03 | disposition home or self-care (01) ==
LOC: MICIMG 15:03
PROVIDERS: PCP Family Medicine; Visit Provider Family Medicine
DX: M16.0 Bilateral primary osteoarthritis of hip (principal)
CPT/HCPCS: 73521

== ENCOUNTER 2025-01-16 12:36 | Outpatient (CLI) | payer MEDICARE, SELFPAY ==
--- NOTE | ~2025-01-16 | DEXA_ITS ---
Bone Density Report Name: CLARA SOTO Age: 79 Sex: Female Ethnicity: White Date of : 1945 Indication: osteopenia; Referring Provider: GLENN TORO Study: Bone densitometry was performed. Exam Date: January 16, 2025 Accession number: [id number] Bone Density: Region BMD T-score Z-score Classification AP Spine(L1-L4) 0.788 -2.4 0.2 Osteopenia Femoral Neck (Left) 0.684 -1.5 0.7 Osteopenia Total Hip (Left) 0.743 -1.6 0.3 Osteopenia Femoral Neck (Right) 0.660 -1.7 0.5 Osteopenia Total Hip (Right) 0.752 -1.6 0.4 Osteopenia Total Hip Mean 0.747 -1.6 0.4 Osteopenia World Health Organization criteria for BMD impression classify patients as: Normal (T-score at or above -1.0), Osteopenia (T-score between -1.0 and -2.5), or Osteoporosis (T-score at or below -2.5). 10-year Fracture Risk(1): Major Osteoporotic Fracture 14% Hip Fracture 3.5% Reported Risk Factors: [place] (), Neck BMD=0.660, BMI=25.9 (1) FRAX(R) Version 3.08. Fracture probability calculated for an untreated patient. Fracture probability may be lower if the patient has received treatment. Previous Exams: -- Region Exam Age BMD T-score BMD Change BMD Change Date g/cm2 vs Baseline vs Previous -- AP Spine (L1-L4) 01/16/2025 79 0.788 -2.4 3.7%* -6.0%* 11/18/2022 77 0.838 -1.9 10.4%* 3.0%* 11/07/2020 75 0.814 -2.1 7.1%* 7.1%* 08/22/2014 68 0.760 -2.6 Total Hip(Left) 01/16/2025 79 0.743 -1.6 7.3%* -0.1% 11/18/2022 77 0.744 -1.6 7.4%* 2.6% 11/07/2020 75 0.725 -1.8 4.8%* 4.8%* 08/22/2014 68 0.692 -2.0 Total Hip(Right) 01/16/2025 79 0.752 -1.6 7.5%* 0.0% 11/18/2022 77 0.752 -1.6 7.6%* 2.2% 11/07/2020 75 0.736 -1.7 5.2%* 5.2%* 08/22/2014 68 0.699 -2.0 -- *Denotes significance at 95% confidence level, LSC for AP Spine = 0.022 g/cm2, LSC for Total Hip = 0.027 g/cm2 Clinical Information Provided by Patient: Has used the following medications: Actonel (i.e. risedronate), Boniva (i.e. ibandronate), Vitamin D, Calcium Patient maximum height was 65 Menopause Age: 51 Drinks caffeinated beverages Onset of menses at age 13 Number of children 3 Impression: The patient has low bone mass, based on the Total Spine T-score. The patient has an estimated ten-year risk of hip fracture of 3.5% and an estimated ten-year risk of major fracture of 14%, based on the WHO FRAX algorithm. The BMD for the AP Spine (L1-L4) decreased, changing by -6.0% since the last DXA exam. Discussion: BONE DENSITY IS LOW AT ONE OR MORE SKELETAL SITES. THE PATIENT'S BMD AND CLINICAL RISK FACTORS CONTRIBUTE TO THIS PATIENT'S INCREASED RISK OF FRACTURE. This patient's lowest T-score is low at one or more skeletal sites. It meets the World Health Organization's (WHO) criteria for ?low bone mass? (T-score between -1.0 and -2.5). The patient's 10-year risk of hip fracture as calculated by FRAX exceeds the threshold where pharmacological therapy is recommended by the National Osteoporosis Foundation (NOF). However, all treatment decisions require clinical judgment and consideration of individual patient factors, including patient preferences, comorbidities, previous drug use, risk factors not captured in the FRAX model (e.g., frailty, falls, vitamin D deficiency, increased bone turnover, interval significant decline in bone density) and possible under or overestimation of fracture risk by FRAX. The patient should follow a healthful lifestyle (good nutrition with adequate calcium and vitamin D, and appropriate weight-bearing exercise). Follow-Up: Consider a repeat BMD and Vertebral Fracture Assessment (VFA) exam in 2 years or sooner if medically necessary, to reassess this patient's status. Reported by: LUCIE on 01/16/2025 12:57:00 PM. Reviewed, dictated and finalized at location A.
== END 2025-01-16 12:37 | disposition home or self-care (01) ==
LOC: MICIMG 12:37
PROVIDERS: PCP Family Medicine; Visit Provider Family Medicine Adolescent Medicine
DX: Z78.0 Asymptomatic menopausal state (principal); M85.88 Other specified disorders of bone density and structure, other site; M85.852 Other specified disorders of bone density and structure, left thigh; M85.851 Other specified disorders of bone density and structure, right thigh
CPT/HCPCS: 77080

== ENCOUNTER 2025-03-06 14:14 | Outpatient (CLI) | payer MEDICARE, SELFPAY ==
--- NOTE | ~2025-03-06 | MM_ITS ---
EXAMINATION: MM screening [facility] BI w olya HISTORY: Screening TECHNIQUE: Craniocaudal and mediolateral oblique 3-D tomosynthesis images were obtained and synthetic 2-D images were generated. CAD analysis was submitted and interpreted. COMPARISON: Comparison to multiple prior studies sequentially, with oldest reviewed study dated 08/29/2018. BREAST PARENCHYMAL COMPOSITION: There are scattered areas of fibroglandular density. FINDINGS: There is no evidence of suspicious mass, calcification, or architectural distortion to suggest malignancy in either breast. Scattered benign-appearing calcifications are present. IMPRESSION: 1. No mammographic evidence of malignancy. 2. Recommend routine screening mammography in one year. BI-RADS Category 2: Benign finding(s). Reviewed, dictated and finalized at location B.
--- OUTSIDE RECORDS SUMMARY | 2025-03-06 14:17 | XMS_ITS | Clinical Summary ---
Author Organization [facility] Address [address] [place] [address] Care Team Providers Care Pier Master Name Role Phone Td Mark MD Primary Care Provider + Source Comments Informous [facility],non-owned Affiliates and Associated Physician Practices is amultiple site organization consisting of ambulatory clinics and hospital sitesin [place], [place], [place] and [place]. This disclosure is being madepursuant to the Care Everywhere program and may not contain all information available regarding this patient. Last updated 18.Spokeable Allergies No known active allergies Medications * Be aware that medications may not be up to date on this document. Alwaysverify current medications with the patient. 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 Gender Identity Not on file Sexual Orientation Not on file Last Filed Vital Signs Vital Sign Reading Time Taken Comments Blood Pressure 164/90 07/02/2018 2:29 PM CONCRETE STONE FABRICATOR Pulse 98 07/02/2018 2:29 PM CONCRETE STONE FABRICATOR Temperature 37.1 C (98.8 F) 07/02/2018 2:29 PM CONCRETE STONE FABRICATOR Respiratory Rate 19 07/02/2018 2:29 PM CONCRETE STONE FABRICATOR Oxygen Saturation 97% 07/02/2018 2:29 PM CONCRETE STONE FABRICATOR Inhaled Oxygen Concentration - - Weight 68.9 kg (152 lb) 07/02/2018 2:29 PM CONCRETE STONE FABRICATOR Height 166.4 cm (5' 5.5) 07/02/2018 2:29 PM CONCRETE STONE FABRICATOR Body Mass Index 24.91 07/02/2018 2:29 PM CONCRETE STONE FABRICATOR Plan of Treatment Health Maintenance Due Date Last Done Comments BONE DENSITY TESTING 1945 HEPATITIS C SCREENING 08/22/1964 DTAP/TDAP/TD VACCINES (1 - Tdap) 1965 PNEUMOCOCCAL VACCINE 50+ (1 of 1 - PCV) 1996 ZOSTER VACCINE (1 of 2) 1996 Respiratory Syncytial Virus (RSV) Vaccine Pt: or over 60 yrs (1 - 1-dose 75+ series) 2021 COVID-19 VACCINE (1 - 2023-2 5 season) 2024 DEPRESSION SCREENING 07/12/2024 INFLUENZA VACCINE (#1) 2025 HEPATITIS B VACCINE Aged Out No longe r eligible based on patient's age to complete this topic HIB VACCINE Aged Out No longer eligi ble based on patient's age to complete this topic HPV VACCINE Aged Out No longer eligi ble based on patient's age to complete this topic MENINGOCOCCAL (Group B) VACC INE SHARED DECISION-MAKING Aged Out No longer eligibl e based on patient's age to complete this topic MENINGOCOCCAL GROUPS A/C/Y/W VACCINE Aged Out No longer eligible b ased on patient's age to complete this topic Insurance [facility] MANAGED MEDICARE ADV Care Teams Pier Master Relationship Specialty Start Date End Date Td Mark MD [address] [address] PCP - General Family Medicine 07/02/18
== END 2025-03-06 14:15 | disposition home or self-care (01) ==
LOC: ANHFOHIMG 14:15
PROVIDERS: PCP Family Medicine; Visit Provider Family Medicine Adolescent Medicine
DX: Z12.31 Encounter for screening mammogram for malignant neoplasm of breast (principal)
CPT/HCPCS: 77063; 77067

== ENCOUNTER 2025-07-09 10:31 | Outpatient (CLI) | payer MEDICARE, SELFPAY ==
--- OUTSIDE RECORDS SUMMARY | 2025-07-09 11:07 | XMS_ITS | Clinical Summary ---
Author Organization [facility] Address [address] [place] [address] Care Team Providers Care Maintenance Truck Driver Name Role Phone Td Mark MD Primary Care Provider + Source Comments [employer] [facility],non-owned Affiliates and Associated Physician Practices is amultiple site organization consisting of ambulatory clinics and hospital sitesin [place], [place], [place] and [place]. This disclosure is being madepursuant to the Care Everywhere program and may not contain all information available regarding this patient. Last updated 18.[employer]ane Allergies No known active allergies Medications * [...] on file Legal Sex Female 2:09 PM POND TENDER Gender Identity Not on file Sexual Orientation Not on file Last Filed Vital Signs Vital Sign Reading Time Taken Comments Blood Pressure 164/90 07/02/2018 2:29 PM POND TENDER Pulse 98 07/02/2018 2:29 PM POND TENDER Temperature 37.1 C (98.8 F) 07/02/2018 2:29 PM POND TENDER Respiratory Rate 19 07/02/2018 2:29 PM POND TENDER Oxygen Saturation 97% 07/02/2018 2:29 PM POND TENDER Inhaled Oxygen Concentration - - Weight 68.9 kg (152 lb) 07/02/2018 2:29 PM POND TENDER Height 166.4 cm (5' 5.5) 07/02/2018 2:29 PM POND TENDER Body Mass Index 24.91 07/02/2018 2:29 PM POND TENDER Plan of Treatment Health Maintenance Due Date Last Done Comments BONE DENSITY TESTING 1945 HEPATITIS C SCREENING 08/22/1964 DTAP/TDAP/TD VACCINES (1 - Tdap) 1965 PNEUMOCOCCAL VACCINE 50+ (1 of 1 - PCV) 1996 ZOSTER VACCINE (1 of 2) 1996 Respiratory Syncytial Virus (RSV) Vaccine Pt: or over 60 yrs (1 - 1-dose 75+ series) 2021 DEPRESSION SCREENING 07/12/2024 COVID-19 VACCINE ( - 2024-2 6 season) 2025 INFLUENZA VACCINE (#1) 2025 HEPATITIS B VACCINE [...] patient's age to complete this topic Insurance [facility] MANAGED MEDICARE ADV Care Teams Maintenance Truck Driver Relationship Specialty Start Date End Date Td Mark MD [address] [address] PCP - General Family Medicine 07/02/18
== END 2025-07-09 10:32 | disposition home or self-care (01) ==
PROVIDERS: PCP Family Medicine; Visit Provider Family Medicine
DX: I49.9 Cardiac arrhythmia, unspecified (principal); I10 Essential (primary) hypertension; E03.9 Hypothyroidism, unspecified
CPT/HCPCS: 93242